=== PATIENT | female | born 1975 | race Caucasian/White ===

== ENCOUNTER 2020-12-16 19:50 | Outpatient (CLI) | payer SELFPAY ==
[2020-12-16 20:18] VITALS: BP 128/67; PULSE 95; TEMP 36.7
[2020-12-16 20:49] VITALS: BP 121/68; PULSE 93
[2020-12-16 21:02] LABS: Urine Appearance Cloudy (CLEAR); Urine Color Yellow (Yellow); pH Urine 7 (5-7)
[2020-12-16 21:03] LABS: Add Urine Microscopic? YES; Bilirubin Urine Neg (Negative); Blood Urine 3+ (Negative); Glucose Urine UA Norm (Normal); Ketones Urine 2+ (Negative); Leukocyte Esterase Urine 2+ (Negative); Nitrate Urine Positive (Negative); Protein Urine 3+ (Negative); Specific Gravity, Urine 1.005 (1.005-1.030); Urobilinogen Urine Norm (Negative)
[2020-12-16 21:04] LABS: Add Urine Culture? Yes; Bacteria Urine 3+ /hpf; RBC Urine 15-25 /hpf (0-2); WBC Urine TOO NUMEROUS TO CNT /hpf (0-5)
[2020-12-16] MEDS: HYDROcodone-acetaminophen 5-325 mg Tablet 1 TAB PO (21:13)
[2020-12-16] MEDS: amoxicillin 500 mg Capsule 1000 MG PO (21:36)
== END 2020-12-16 21:39 | disposition home or self-care (01) ==
LOC: OBGYN 21:29 → OPOB 12-17 11:23 → OBGYN 12-18 08:02
PROVIDERS: Visit Provider Family Medicine
DX: O23.40 Unspecified infection of urinary tract in pregnancy, unspecified trimester (principal); Z3A.00 Weeks of gestation of pregnancy not specified
CPT/HCPCS: 59025; 81000; 81001; 87077; 87086; 87186; 99211; G0378; G0379